=== PATIENT | female | born 1990 | race Hispanic/Latino ===

== ENCOUNTER 2018-02-24 16:29 | Emergency (ER) | payer MEDICAID ==
[2018-02-24 17:16] LABS: APPEARANCE,URINE Clear (CLEAR); BILIRUBIN,URINE Negative (NEGATIVE); COLOR,URINE Yellow (YELLOW); GLUCOSE, URINE (UA) Negative (NEGATIVE); KETONES,URINE Negative (NEGATIVE); LEUKOCYTE ESTERASE ,URINE Negative (NEGATIVE); NITRATE,URINE Negative (NEGATIVE); OCCULT BLOOD,URINE Negative (NEGATIVE); PH,URINE 6.5 (5.0-8.0); PROTEIN,URINE Negative (NEGATIVE); UROBILINOGEN,URINE 0.2 mg/dL (0.2-1.0)
[2018-02-24 17:17] LABS: BASOPHILS % (AUTO) 0.3 % (0.0-5.0); EOSINOPHILS % (AUTO) 0.6 % (0.0-8.0); HEMATOCRIT 38.3 % (36-48); LYMPHOCYTES % (AUTO) 25.3 % (21.0-51.0); MEAN CORPUSCULAR HGB CONC 35.7 g/dL (32.0-36.0); MEAN CORPUSCULAR VOLUME 89.7 fL (79-99); MONOCYTES % (AUTO) 6.9 % (3.0-13.0); NEUTROPHILS % (AUTO) 66.9 % (40.0-77.0); PLATELET COUNT (AUTO) 312 K/uL (130-400); RED BLOOD CELL COUNT(AUTO) 4.27 MIL/uL (4.00-5.50); RED CELL DISTRIBUTION WIDTH 12.4 % (11.0-15.5); WHITE BLOOD COUNT (AUTO) 6.4 K/uL (4.8-10.8)
[2018-02-24 17:31] LABS: CREATININE 0.7 mg/dL (0.5-1.5); POTASSIUM 3.7 mmol/L (3.5-5.1)
== END 2018-02-24 19:47 | disposition home or self-care (01) ==
LOC: EDH 16:29
DX: O20.0 Threatened abortion (principal); Z3A.10 10 weeks gestation of pregnancy
CPT/HCPCS: 36415; 76817; 80048; 81003; 84702; 85025; 86900; 86901

== ENCOUNTER 2018-02-26 12:47 | Emergency (ER) | payer MEDICAID ==
[2018-02-26 13:58] LABS: BASOPHILS % (AUTO) 0.3 % (0.0-5.0); EOSINOPHILS % (AUTO) 0.9 % (0.0-8.0); HEMATOCRIT 37.5 % (36-48); LYMPHOCYTES % (AUTO) 28.1 % (21.0-51.0); MEAN CORPUSCULAR HEMOGLOBIN 32.3 pg (27.0-33.0); MEAN CORPUSCULAR HGB CONC 36.2 g/dL (32.0-36.0); MEAN CORPUSCULAR VOLUME 89.2 fL (79-99); MONOCYTES % (AUTO) 7.6 % (3.0-13.0); NEUTROPHILS % (AUTO) 63.1 % (40.0-77.0); PLATELET COUNT (AUTO) 322 K/uL (130-400); RED CELL DISTRIBUTION WIDTH 12.7 % (11.0-15.5); WHITE BLOOD COUNT (AUTO) 6.3 K/uL (4.8-10.8)
[2018-02-26 14:10] LABS: CREATININE 0.6 mg/dL (0.5-1.5); POTASSIUM 4.3 mmol/L (3.5-5.1)
[2018-02-26 14:14] LABS: ALBUMIN 3.8 g/dL (3.5-5.0); BILIRUBIN,TOTAL 0.2 mg/dL (0.2-1.0); TOTAL PROTEIN, SERUM 8.1 g/dL (6.0-8.3)
[2018-02-26 14:16] LABS: APPEARANCE,URINE Clear (CLEAR); BILIRUBIN,URINE Negative (NEGATIVE); COLOR,URINE Yellow (YELLOW); GLUCOSE, URINE (UA) Negative (NEGATIVE); KETONES,URINE Negative (NEGATIVE); LEUKOCYTE ESTERASE ,URINE Small (NEGATIVE); NITRATE,URINE Negative (NEGATIVE); OCCULT BLOOD,URINE Moderate (NEGATIVE); PROTEIN,URINE Negative (NEGATIVE); UROBILINOGEN,URINE 0.2 mg/dL (0.2-1.0)
[2018-02-26 14:31] LABS: BACTERIA,URINE Rare /HPF (None Seen); MUCUS,URINE Few LPF (None Seen); SQUAMOUS EPITHELIAL CELL,UR Rare /HPF (0-2); WBC,URINE 0-1 /HPF (0-1)
== END 2018-02-26 15:16 | disposition home or self-care (01) ==
LOC: EDH 12:47
DX: O36.4XX0 Maternal care for intrauterine death, not applicable or unspecified (principal); Z3A.10 10 weeks gestation of pregnancy
CPT/HCPCS: 36415; 80053; 81001; 84702; 85025

== ENCOUNTER 2020-11-21 12:52 | Observation (INO) | payer MEDICAID ==
[~2020-11-21] VITALS: Ht 157.5 cm; Wt 82.1 kg
[2020-11-21 13:45] LABS: APPEARANCE,URINE CLEAR (CLEAR); BILIRUBIN,URINE NEGATIVE (NEGATIVE); COLOR,URINE YELLOW (YELLOW); GLUCOSE, URINE (UA) NEGATIVE (NEGATIVE); KETONES,URINE 5 mg/dL (NEGATIVE); LEUKOCYTE ESTERASE ,URINE LARGE (NEGATIVE); NITRATE,URINE NEGATIVE (NEGATIVE); OCCULT BLOOD,URINE SMALL (NEGATIVE); PH,URINE 5.5 (5.0-8.0); PROTEIN,URINE NEGATIVE (NEGATIVE); UROBILINOGEN,URINE 0.2 mg/dL (0.2-1.0)
[2020-11-21 13:53] LABS: BACTERIA,URINE Few /HPF (None Seen); RBC,URINE 0-1 /HPF (0-1)
== END 2020-11-21 15:20 | disposition home or self-care (01) ==
LOC: EDH 12:52 → LDH 12:53
PROVIDERS: ADMIT Obstetrics & Gynecology; ATTEND Obstetrics & Gynecology
DX: O62.9 Abnormality of forces of labor, unspecified (principal); O26.853 Spotting complicating pregnancy, third trimester; Z3A.38 38 weeks gestation of pregnancy
CPT/HCPCS: 59025; 81001; 87088; 99284; G0378 ×2

== ENCOUNTER 2020-11-21 20:32 | Inpatient (IN) | payer MEDICAID ==
[~2020-11-21] VITALS: Ht 157.5 cm; Wt 82.1 kg
[2020-11-21] MEDS ORDERED: LACTATED RINGERS 1000ML 1,000 ML IV PRN (20:45)
[2020-11-21] MEDS ORDERED: OXYTOCIN-LR 20 UNITS/1000 ML 1,000 ML IV ONE (21:09)
[2020-11-21 21:18] LABS: HEMATOCRIT 38.5 % (36-48); MEAN CORPUSCULAR HEMOGLOBIN 28.7 pg (27.0-33.0); MEAN CORPUSCULAR VOLUME 87.1 fL (79-99); RED BLOOD CELL COUNT(AUTO) 4.42 MIL/uL (4.00-5.50); RED CELL DISTRIBUTION WIDTH 13.2 % (11.0-15.5); WHITE BLOOD COUNT (AUTO) 9.7 K/uL (4.8-10.8)
[2020-11-21] MEDS ORDERED: OXYTOCIN-LR 20 UNITS/1000 ML 1,000 ML IV SCH (21:45)
[2020-11-21] MEDS ORDERED: ACETAMINOPHEN WITH CODEINE 1 TAB TAB PO PRN (21:45)
[2020-11-21] MEDS ORDERED: BENZOCAINE/LANOLIN/ALOE VERA 60 ML AEROSOL TP PRN (21:45)
[2020-11-21] MEDS ORDERED: LANOLIN 30GM OINTMENT TP PRN (21:45)
[2020-11-21] MEDS ORDERED: WITCH HAZEL 1 PAD TP PRN (21:45)
[2020-11-21] MEDS ORDERED: ACETAMINOPHEN 325 MG TAB PO PRN (21:45)
[2020-11-21] MEDS: IBUPROFEN 600 MG TABLET PO PRN (22:22)
[2020-11-22 00:25] VITALS: BP 127/85
[2020-11-22 03:40] VITALS: BP 128/76
[2020-11-22 07:28] VITALS: BP 117/72
[2020-11-22] MEDS: DOCUSATE SODIUM 100 MG CAP PO SCH ×2 (10:03→21:10)
[2020-11-22] MEDS: IBUPROFEN 600 MG TABLET PO PRN ×2 (10:04→18:56)
[2020-11-22 11:35] VITALS: BP 121/82
[2020-11-22 17:11] VITALS: BP 142/89
[2020-11-22 20:55] VITALS: BP 131/80
[2020-11-23 00:30] VITALS: BP 131/83
[2020-11-23 04:25] VITALS: BP 132/81
[2020-11-23 07:16] LABS: HEPATITIS Bs ANTIGEN SCREEN P Negative (Negative)
[2020-11-23 07:38] VITALS: BP 131/76
[2020-11-23] MEDS ORDERED: PNV1TABL17 PO ×2 (08:54)
[2020-11-23] MEDS: DOCUSATE SODIUM 100 MG CAP PO SCH (08:57)
[2020-11-23] MEDS: IBUPROFEN 600 MG TABLET PO PRN (08:58)
[2020-11-23 11:29] VITALS: BP 125/79
== END 2020-11-23 15:10 | disposition home or self-care (01) | DRG 560 ==
LOC: EDH 20:32 → LDH 20:33 → OBSVTOIN 21:45 → WSH 11-22 00:25
PROVIDERS: ADMIT Obstetrics & Gynecology; ATTEND Specialist
PROC: 10E0XZZ Delivery of Products of Conception, External Approach (ICD-10-PCS; principal; 2020-11-21)
PROC: 10907ZC Drainage of Amniotic Fluid, Therapeutic from Products of Conception, Via Natural or Artificial Opening (ICD-10-PCS; 2020-11-21)
DX: O80 Encounter for full-term uncomplicated delivery (principal); Z3A.39 39 weeks gestation of pregnancy; Z37.0 Single live birth
CPT/HCPCS: 36415; 59025; 81001; 85027; 86592; 86850; 86900; 86901; 87088; 87340; A4351; G0378; J2590; J7120

== ENCOUNTER 2022-04-10 13:22 | Emergency (ER) | payer MEDICAID ==
[~2022-04-10] VITALS: Ht 157.5 cm; Wt 71.2 kg
[~2022-04-10 13:22] MED LIST: PNV1TABL17 PO
[2022-04-10 13:52] LABS: BASOPHILS % (AUTO) 0.3 % (0.0-5.0); EOSINOPHILS % (AUTO) 2.2 % (0.0-8.0); HEMATOCRIT 38.3 % (36-48); LYMPHOCYTES % (AUTO) 18.5 % (21.0-51.0); MEAN CORPUSCULAR HEMOGLOBIN 30.9 pg (27.0-33.0); MEAN CORPUSCULAR HGB CONC 34.7 g/dL (32.0-36.0); MEAN CORPUSCULAR VOLUME 88.9 fL (79-99); NEUTROPHILS % (AUTO) 68.7 % (40.0-77.0); PLATELET COUNT (AUTO) 257 K/uL (130-400); RED BLOOD CELL COUNT(AUTO) 4.31 MIL/uL (4.00-5.50); RED CELL DISTRIBUTION WIDTH 12.5 % (11.0-15.5); WHITE BLOOD COUNT (AUTO) 9.4 K/uL (4.8-10.8)
[2022-04-10 14:00] LABS: CREATININE 0.7 mg/dL (0.5-1.5); POTASSIUM 3.4 mmol/L (3.5-5.1)
[2022-04-10 14:04] LABS: ALBUMIN 3.5 g/dL (3.5-5.0); BILIRUBIN,TOTAL 0.6 mg/dL (0.2-1.0); TOTAL PROTEIN, SERUM 7.5 g/dL (6.0-8.3)
[2022-04-10 14:16] LABS: APPEARANCE,URINE Clear (CLEAR); BILIRUBIN,URINE Negative (NEGATIVE); COLOR,URINE Yellow (YELLOW); GLUCOSE, URINE (UA) Negative (NEGATIVE); KETONES,URINE Negative (NEGATIVE); LEUKOCYTE ESTERASE ,URINE Moderate (NEGATIVE); NITRATE,URINE Negative (NEGATIVE); OCCULT BLOOD,URINE Negative (NEGATIVE); PH,URINE 6.5 (5.0-8.0); PROTEIN,URINE Negative (NEGATIVE)
[2022-04-10 14:17] LABS: HCG,QUAL RESULT NEGATIVE (NEGATIVE)
[2022-04-10 14:30] LABS: BACTERIA,URINE Few /HPF (None Seen); RBC,URINE None Seen /HPF (0-1)
[2022-04-10] MEDS ORDERED: 0.9% NACL 250ML 250 ML IV ONE (15:00)
[2022-04-10] MEDS ORDERED: KETOROLAC 15MG/ML VIAL (15MG/ML) IV ONE (15:00)
[2022-04-10] MEDS ORDERED: ONDANSETRON 4MG INJ IVP ONE (15:00)
[2022-04-10] MEDS ORDERED: MORPHINE 2 MG SYG IVP ONE (15:00)
[2022-04-10] MEDS ORDERED: NAPR500T6 PO (15:08)
[2022-04-10] MEDS ORDERED: ONDA4TAB10 PO (15:08)
[2022-04-10 15:55] VITALS: BP 144/85
== END 2022-04-10 16:18 | disposition home or self-care (01) ==
LOC: EDH 13:22
DX: K80.20 Calculus of gallbladder without cholecystitis without obstruction (principal)
CPT/HCPCS: 36415; 76705; 80053; 81001; 81025; 83690; 85025; 87088; 96361; 96374; 96375; 99284; J1885; J2405; J7050

== ENCOUNTER 2022-08-16 22:28 | Emergency (ER) | payer MEDICAID ==
[~2022-08-16] VITALS: Ht 157.5 cm; Wt 73.5 kg
[~2022-08-16 22:28] MED LIST changes: +NAPR500T6 PO; +ONDA4TAB10 PO
[2022-08-16 22:31] VITALS: BP 168/99
[2022-08-16 22:53] LABS: BASOPHILS % (AUTO) 0.2 % (0.0-5.0); HEMATOCRIT 42.5 % (36-48); LYMPHOCYTES % (AUTO) 9.8 % (21.0-51.0); MEAN CORPUSCULAR HEMOGLOBIN 30.5 pg (27.0-33.0); MEAN CORPUSCULAR HGB CONC 35.3 g/dL (32.0-36.0); MEAN CORPUSCULAR VOLUME 86.6 fL (79-99); MONOCYTES % (AUTO) 2.7 % (3.0-13.0); NEUTROPHILS % (AUTO) 86.9 % (40.0-77.0); PLATELET COUNT (AUTO) 321 K/uL (130-400); RED BLOOD CELL COUNT(AUTO) 4.91 MIL/uL (4.00-5.50); RED CELL DISTRIBUTION WIDTH 11.9 % (11.0-15.5); WHITE BLOOD COUNT (AUTO) 12.7 K/uL (4.8-10.8)
[2022-08-16] MEDS ORDERED: KETOROLAC 30MG VIAL (30MG/ML) IVP ONE (23:00)
[2022-08-16] MEDS ORDERED: DICYCLOMINE HCL 10 MG/5 ML ML PO ONE (23:00)
[2022-08-16] MEDS ORDERED: LIDOCAINE HCL 2% VISCOUS 15 ML UDCUP PO ONE (23:00)
[2022-08-16] MEDS ORDERED: FAMOTIDINE 20MG VIAL IV ONE (23:00)
[2022-08-16] MEDS ORDERED: MAG/ALUM/SIMETH 30 ML UDCUP PO ONE (23:00)
[2022-08-16] MEDS ORDERED: ONDANSETRON 4MG INJ IVP ONE (23:00)
[2022-08-16 23:07] LABS: CREATININE 0.7 mg/dL (0.5-1.5); POTASSIUM 3.7 mmol/L (3.5-5.1)
[2022-08-16 23:12] LABS: ALBUMIN 4.5 g/dL (3.5-5.0); CRP QUANTITATIVE 3.9 mg/L (0.00-9.0); TOTAL PROTEIN, SERUM 8.6 g/dL (6.0-8.3)
[2022-08-16 23:14] LABS: APPEARANCE,URINE CLEAR (CLEAR); BILIRUBIN,URINE NEGATIVE (NEGATIVE); GLUCOSE, URINE (UA) NEGATIVE (NEGATIVE); KETONES,URINE 5 mg/dL (NEGATIVE); LEUKOCYTE ESTERASE ,URINE NEGATIVE Leu/uL (NEGATIVE); NITRATE,URINE NEGATIVE (NEGATIVE); PH,URINE 5.5 (5.0-8.0); PROTEIN,URINE NEGATIVE (NEGATIVE); UROBILINOGEN,URINE 0.2 mg/dL (0.2-1.0)
[2022-08-16 23:18] LABS: COLOR,URINE STRAW (YELLOW)
[2022-08-16 23:40] LABS: HCG,QUALITATIVE URINE NEGATIVE (NEGATIVE)
[2022-08-16 23:41] LABS: MUCUS,URINE RARE LPF (None Seen); WBC,URINE 0-1 /HPF (0-1)
[2022-08-17] MEDS ORDERED: FAMO-136 PO
[2022-08-17] MEDS ORDERED: DICY20TA2 PO
[2022-08-17] MEDS ORDERED: ONDA4TAB10 PO
== END 2022-08-17 00:19 | disposition home or self-care (01) ==
LOC: EDH 22:28
DX: K80.20 Calculus of gallbladder without cholecystitis without obstruction (principal); Z79.899 Other long term (current) drug therapy
CPT/HCPCS: 99284; 96374; 76705; 96375; 80053; 83690; 85025; 86140; 81001; 81025; 36415; J2405; J1885; S0028; J3490

== ENCOUNTER 2024-06-25 14:43 | Emergency (ER) | payer SELFPAY ==
[~2024-06-25] VITALS: Ht 157.5 cm; Wt 62.6 kg
[~2024-06-25 14:43] MED LIST changes: +DICY20TA2 PO; +FAMO-136 PO; +ONDA-243 PO; -ONDA4TAB10 PO
[2024-06-25 16:04] LABS: BASOPHILS # (AUTO) 0.01 K/uL (0.00-0.20); BASOPHILS % (AUTO) 0.2 % (0.0-5.0); EOSINOPHILS # (AUTO) 0.04 K/uL (0.00-0.70); EOSINOPHILS % (AUTO) 0.6 % (0.0-8.0); IMMATURE GRANULOCYTE ABSOLUTE 0.01 K/uL (0-1); LYMPHOCYTES # (AUTO) 1.8 K/uL (1.0-4.8); LYMPHOCYTES % (AUTO) 28.5 % (21.0-51.0); MEAN CORPUSCULAR HEMOGLOBIN 31.8 pg (27.0-33.0); MEAN CORPUSCULAR HGB CONC 35.2 g/dL (32.0-36.0); MEAN CORPUSCULAR VOLUME 90.1 fL (79-99); MONOCYTES # (AUTO) 0.4 K/uL (0.1-1.0); MONOCYTES % (AUTO) 6.3 % (3.0-13.0); NEUTROPHILS # (AUTO) 4.1 K/uL (1.8-7.7); NEUTROPHILS % (AUTO) 64.2 % (40.0-77.0); PLATELET COUNT (AUTO) 264 K/uL (130-400); RED BLOOD CELL COUNT(AUTO) 4.66 MIL/uL (4.00-5.50); RED CELL DISTRIBUTION WIDTH 11.9 % (11.0-15.5); WHITE BLOOD COUNT (AUTO) 6.4 K/uL (4.8-10.8)
[2024-06-25 16:07] LABS: CREATININE 0.8 mg/dL (0.5-1.0); POTASSIUM 3.6 mmol/L (3.5-5.1)
[2024-06-25 16:11] LABS: ALBUMIN 3.9 g/dL (3.5-5.0); BILIRUBIN,TOTAL 0.4 mg/dL (0.2-1.0); TOTAL PROTEIN, SERUM 8.4 g/dL (6.0-8.3)
[2024-06-25] MEDS ORDERED: ONDANSETRON 4MG INJ IVP ONE (17:00)
[2024-06-25] MEDS: ONDANSETRON 4MG INJ IVP ONE (17:11)
[2024-06-25] MEDS: 0.9%NACL 1000ML 1,000 ML IV ONE (17:12)
[2024-06-25 18:37] LABS: APPEARANCE,URINE CLEAR (CLEAR); BILIRUBIN,URINE NEGATIVE (NEGATIVE); COLOR,URINE COLORLESS (YELLOW); GLUCOSE, URINE (UA) NEGATIVE (NEGATIVE); KETONES,URINE 20 mg/dL (NEGATIVE); LEUKOCYTE ESTERASE ,URINE 25 Leu/uL (NEGATIVE); NITRATE,URINE NEGATIVE (NEGATIVE); OCCULT BLOOD,URINE NEGATIVE (NEGATIVE); PH,URINE 6.5 (5.0-8.0); PROTEIN,URINE NEGATIVE (NEGATIVE); UROBILINOGEN,URINE 0.2 mg/dL (0.2-1.0)
[2024-06-25 18:42] LABS: HCG,QUALITATIVE URINE POSITIVE (NEGATIVE)
[2024-06-25] MEDS ORDERED: IOHEXOL-350 75 ML VIAL IV ONE (18:44)
[2024-06-25 18:51] LABS: MUCUS,URINE RARE LPF (None Seen); RBC,URINE 0-1 /HPF (0-1); SQUAMOUS EPITHELIAL CELL,UR RARE /HPF (0-2)
[2024-06-25] MEDS ORDERED: CEPH500T PO (21:00)
[2024-06-25] MEDS: acetaMINOPHEN 500 MG TABLET PO ONE (21:32)
[2024-06-25] MEDS: hydrALAZine 20MG/ML VIAL IV ONE (22:01)
[2024-06-25] MEDS ORDERED: ONDA-243 PO (22:17)
[2024-06-25 22:29] VITALS: BP 129/90; PULSE 89; RESP 18; O2SAT 100
== END 2024-06-25 22:38 | disposition home or self-care (01) ==
LOC: EDH 14:43
DX: O23.40 Unspecified infection of urinary tract in pregnancy, unspecified trimester (principal); O26.899 Other specified pregnancy related conditions, unspecified trimester; N39.0 Urinary tract infection, site not specified; K80.20 Calculus of gallbladder without cholecystitis without obstruction; R10.2 Pelvic and perineal pain; Z79.899 Other long term (current) drug therapy
CPT/HCPCS: 99285; 96374; 76705; 96361; 96375; 80053; 84702; 83690; 85025; 81001; 81025; 36415; J7030; J0360; J2405; Q9967

== ENCOUNTER 2024-07-19 19:06 | Emergency (ER) | payer MEDICAID ==
[~2024-07-19] VITALS: Ht 157.5 cm; Wt 64.4 kg
[~2024-07-19 19:06] MED LIST changes: +CEPH500T PO
[2024-07-19 19:40] LABS: HCG,QUALITATIVE URINE POSITIVE (NEGATIVE)
[2024-07-19 19:41] LABS: ADD UA MICROSCOPIC YES; APPEARANCE,URINE CLEAR (CLEAR); BILIRUBIN,URINE NEGATIVE (NEGATIVE); COLOR,URINE COLORLESS (YELLOW); GLUCOSE, URINE (UA) NEGATIVE (NEGATIVE); KETONES,URINE NEGATIVE (NEGATIVE); LEUKOCYTE ESTERASE ,URINE NEGATIVE Leu/uL (NEGATIVE); NITRATE,URINE NEGATIVE (NEGATIVE); OCCULT BLOOD,URINE LARGE (NEGATIVE); PH,URINE 6.5 (5.0-8.0); PROTEIN,URINE NEGATIVE (NEGATIVE); UROBILINOGEN,URINE 0.2 mg/dL (0.2-1.0)
[2024-07-19 19:43] LABS: MUCUS,URINE RARE LPF (None Seen); RBC,URINE 0-1 /HPF (0-1); SQUAMOUS EPITHELIAL CELL,UR FEW /HPF (0-2); WBC,URINE 0-1 /HPF (0-1)
[2024-07-19] MEDS: LACTATED RINGERS 1000ML 1,000 ML IV ONE (19:49)
[2024-07-19 20:17] LABS: BASOPHILS # (AUTO) 0.02 K/uL (0.00-0.20); BASOPHILS % (AUTO) 0.4 % (0.0-5.0); EOSINOPHILS # (AUTO) 0.03 K/uL (0.00-0.70); EOSINOPHILS % (AUTO) 0.5 % (0.0-8.0); HEMATOCRIT 35.2 % (36-48); IMMATURE GRANULOCYTE ABSOLUTE 0.01 K/uL (0-1); LYMPHOCYTES # (AUTO) 1.7 K/uL (1.0-4.8); LYMPHOCYTES % (AUTO) 30.6 % (21.0-51.0); MEAN CORPUSCULAR HEMOGLOBIN 31.7 pg (27.0-33.0); MEAN CORPUSCULAR HGB CONC 35.2 g/dL (32.0-36.0); MONOCYTES # (AUTO) 0.4 K/uL (0.1-1.0); MONOCYTES % (AUTO) 7.1 % (3.0-13.0); NEUTROPHILS # (AUTO) 3.5 K/uL (1.8-7.7); NEUTROPHILS % (AUTO) 61.2 % (40.0-77.0); PLATELET COUNT (AUTO) 250 K/uL (130-400); RED BLOOD CELL COUNT(AUTO) 3.91 MIL/uL (4.00-5.50); RED CELL DISTRIBUTION WIDTH 11.8 % (11.0-15.5); WHITE BLOOD COUNT (AUTO) 5.7 K/uL (4.8-10.8)
[2024-07-19 20:25] LABS: CREATININE 0.7 mg/dL (0.5-1.0); POTASSIUM 3.8 mmol/L (3.5-5.1)
[2024-07-19 21:01] VITALS: BP 120/74; PULSE 77; RESP 20; TEMP 98.6; O2SAT 100
== END 2024-07-19 21:09 | disposition home or self-care (01) ==
LOC: EDH 19:06
DX: O20.0 Threatened abortion (principal); Z3A.01 Less than 8 weeks gestation of pregnancy; Z79.899 Other long term (current) drug therapy
CPT/HCPCS: 99284; 76801; 80048; 84702; 85025; 81001; 81025; 36415; J7120